=== PATIENT | male | born 1935 | race Caucasian/White ===

== ENCOUNTER → 2017-05-02 | Outpatient (CLI) | payer MEDICARE, BC ==
[2015-09-20 11:26] VITALS: BP 110/69
[~2017-05-02] MED LIST: CARV12.5 PO; GLIM4TAB PO; IOHEXOL 240 MG/ML 50ML VIAL. ONE; IOHEXOL 300 MG/ML 75 ML VIAL. IV ONE; METF500T4 PO; OMEP40CA5 PO; ZOLP10TA PO
--- NOTE | 2017-05-02 12:15 | RAD ---
CT of the abdomen and pelvis with contrast, 05/02/2017: History: Abdominal pain with diarrhea Multidetector CT imaging was performed following oral and IV administration of contrast. The gallbladder is surgically absent. There is an unchanged small low-density lesion in the right lobe of the liver, most likely a cyst. No new hepatic abnormality is seen. The pancreas is unremarkable. The spleen shows no abnormality. There is an unchanged small cyst in the left kidney. The kidneys show no evidence of obstruction. Moderate aortoiliac calcific plaquing is present without evidence of aneurysm. No abdominal or pelvic adenopathy is seen. Colonic diverticula are present, most numerous in the sigmoid and distal descending colon. No paracolonic inflammatory process is seen. The bowel loops are not dilated. A portion of the appendix is visualized and it is unremarkable. No free air or significant free fluid is present in the abdomen or pelvis. Moderate scattered degenerative changes are present in the spine. IMPRESSION: 1. Colonic diverticulosis. 2. No acute abdominal or pelvic abnormality is detected. PQRS Compliance Statement: One or more of the following individualized dose reduction techniques were utilized for this examination: 1. Automated exposure control 2. Adjustment of the mA and/or kV according to patient size 3. Use of iterative reconstruction technique
== END | disposition home or self-care (01) ==
LOC: CT 08:10
PROVIDERS: ATTEND Family Medicine
DX: K57.30 Diverticulosis of large intestine without perforation or abscess without bleeding (principal); R19.7 Diarrhea, unspecified
CPT/HCPCS: 74177; Q9966; Q9967

== ENCOUNTER → 2018-10-08 | Outpatient (CLI) | payer MEDICARE, BC ==
[2015-09-20 11:26] VITALS: BP 110/69
[~2018-10-08] MED LIST changes: -IOHEXOL 300 MG/ML 75 ML VIAL. IV ONE; +METF500T16 PO; -METF500T4 PO
[2018-10-08] MEDS: IOHEXOL 300 MG/ML 75 ML VIAL. IV ONE (11:38)
--- NOTE | 2018-10-08 15:15 | RAD ---
PQRS Compliance Statement: One or more of the following individualized dose reduction techniques were utilized for this examination: 1. Automated exposure control 2. Adjustment of the mA and/or kV according to patient size 3. Use of iterative reconstruction technique CT chest, abdomen and pelvis with contrast October 08, 2017 INDICATION: Weight loss, diabetes. COMPARISON: CT abdomen/pelvis May 02, 2017 TECHNIQUE: Multiple axial CT images of the chest, abdomen and pelvis were obtained after intravenous administration of 75 cc Omnipaque 300. Oral contrast was administered.: Sagittal reformats are provided. FINDINGS: Chest: The thyroid gland is normal in appearance. There are no pathologically enlarged axillary, mediastinal or hilar lymph nodes. Heart size within normal limits. There is no pericardial effusion. Three-vessel coronary artery vascular calcifications are present. Ascending thoracic aorta is normal in course and caliber. Opacified portions of the pulmonary arteries are patent. There is mild centrilobular pulmonary emphysema. Mild bronchial wall thickening is suggestive of mild bronchitis. There is a solid noncalcified pulmonary nodule measuring 6 mm along the minor fissure in the right middle lobe (series 4, image 73). There is subsegmental atelectasis in the inferior lingula. There are no pleural effusions. No pulmonary vascular congestion or pneumothorax. Abdomen/pelvis: There is a 15 mm hypoattenuating lesion in the inferior posterior right hepatic lobe with peripheral contrast puddling suggestive of a hepatic hemangioma. There are no suspicious hepatic lesions identified. Portal venous system is patent. There is no intrahepatic or extrahepatic biliary ductal dilatation. Gallbladder surgically absent. The kidneys enhance symmetrically. There is no suspicious renal mass. There is no hydronephrosis. There are no suspected calculi within the kidneys, ureters or urinary bladder. There is a renal cortical cyst measuring 8 mm in the posterior midpole the left kidney. Evaluation for renal calculi is limited by focal contrast within the renal collecting systems. There is concentric wall thickening involving the terminal ileum. There is a focal eccentric mass identified within the mid to distal ileum measuring 2.4 x 1.5 x 2.0 cm (series 8, image 44 and series 7, image 80). Immediately distal to the mass, there is a pocket of gas which communicates with a larger gas-filled fluid collection measuring 9.3 x 9.0 x 6.7 cm suspicious for an intra-abdominal abscess. Small amount of fluid and debris is identified within the collection. There is moderate colonic diverticulosis. Mild inflammatory changes are identified at the rectosigmoid junction which may be reactive secondary to adjacent inflammation. There is an adjacent rim-enhancing fluid collection in the right lower pelvis measuring 2.8 x 1.4 cm which may represent an additional abscess. There is free intraperitoneal air. Small volume free fluid is identified. There is circumferential wall thickening involving the proximal stomach which may be seen in the setting of gastritis or lymphoma. Mild fecal stasis is noted in the rectum. Mild bladder wall thickening may be secondary to reactive inflammatory changes versus chronic outlet obstruction. Prostate is mildly enlarged. No suspicious osseous abnormalities identified. IMPRESSION: 1. There is free intraperitoneal air suggestive of bowel perforation. 2. There is a intra-abdominal abscess in the right lower quadrant which may communicate with patent mid to distal ileal loop. However, oral contrast is not identified within this air and fluid collection, making it difficult to confirm the location of perforation. An additional smaller abscess is identified in the right lower pelvis measuring 2.8 x 1.4 cm. There is moderate diverticulosis with wall thickening involving the rectosigmoid junction. Consideration may be given for mild diverticulitis. 3. There is a small bowel mass in the mid to distal ileum measuring measuring 2.4 x 1.5 x 2.0 cm. Small bowel adenocarcinoma versus ruptured Meckel's diverticulitis versus metastatic disease are differential considerations. 4. Diffuse circumferential wall thickening involving the proximal stomach may represent gastritis versus lymphoma. Further evaluation with endoscopy may be of benefit. 5. COPD changes with a 6 mm solid noncalcified pulmonary nodule in the right middle lobe. One year follow-up chest CT may be of benefit. FOR INTERNAL CODING PURPOSES Critical result: Findings discussed with CHRISS KINGSLEY at 10/08/2018 3:10 PM. RESULT CODE: (C) Electronically signed by: Lizzie Mcnamara MD (10/08/2018 3:10 PM) [email or web address]
== END | disposition home or self-care (01) ==
LOC: CT 09:58
PROVIDERS: ATTEND Family Medicine
DX: E11.9 Type 2 diabetes mellitus without complications (principal); L02.818 Cutaneous abscess of other sites; K65.1 Peritoneal abscess; K57.30 Diverticulosis of large intestine without perforation or abscess without bleeding; N40.0 Benign prostatic hyperplasia without lower urinary tract symptoms; K59.8 Other specified functional intestinal disorders; N28.1 Cyst of kidney, acquired; J98.11 Atelectasis; J43.2 Centrilobular emphysema; I25.10 Atherosclerotic heart disease of native coronary artery without angina pectoris; R91.1 Solitary pulmonary nodule
CPT/HCPCS: 71260; 74177; Q9966; Q9967